=== PATIENT | male | born 1985 | race Two or more races ===

== ENCOUNTER 2018-06-08 00:59 | Emergency (ER) | payer OTHER ==
[~2018-06-08] VITALS: Ht 167.6 cm; Wt 63.5 kg
[2018-06-08 01:10] VITALS: BP 130/92
--- NOTE | 2018-06-08 01:21 | Emergency Room Report ---
History of Present Illness General Chief Complaint: Laceration Source: Patient Present Illness HPI Patient presents with complaints of injury to the left hand Patient was using a pizza dough machine When he injured his index and middle finger on the left hand on the palmar aspect proximally Patient is left-hand dominant denies any wrist pain denies any elbow pain or other trauma patient is able to straighten all digits with discomfort Allergies: Coded Allergies: No Known Allergies (Unverified , 06/08/18) Patient History Past Medical History: see triage record Pertinent Family History: none Reviewed Nursing Documentation: PMH: Agreed; PSxH: Agreed Nursing Documentation-PMH Past Medical History: No Stated History Review of Systems All Other Systems: negative except mentioned in HPI Physical Exam Vital Signs Date Time Temp Pulse Resp B/P (MAP) Pulse Ox O2 Delivery O2 Flow Rate FiO2 06/08/18 01:04 98.2 80 12 134/91 97 Room Air Sp02 EP Interpretation: reviewed, normal General Appearance: well appearing, no apparent distress Head: normocephalic, atraumatic Eyes: bilateral eye PERRL, bilateral eye EOMI ENT: hearing grossly normal, normal pharynx Neck: supple Respiratory: lungs clear, no retraction, no accessory muscle use Cardiovascular #1: regular rate, rhythm Musculoskeletal: normal inspection - Patient able to flex and extend all digits appropriately Neurologic: alert, oriented x3, responsive Procedures Laceration/Wound Repair Laceration/Wound Repair : Consent: Emergent Wound Location: upper extremity Wound's Depth, Shape: into muscle, irregular Wound Explored: clean Irrigated w/ Saline (ccs): 300 Betadine Prep?: Yes Anesthesia: 1% Lidocaine Volume Anesthetic (ccs): 6 Wound Debrided: moderate Wound Repaired With: sutures Suture Size/Type: 5:0 Number of Sutures: 15 Layer Closure?: No Sterile Dressing Applied?: Yes Patient Tolerated: Well Complications: None Progress Patient had digital block performed on the hand index and middle finger by injecting the lidocaine proximally on the digit. We had good sedation with this patient had 7 stitches applied to the middle finger, 8 stitches applied to the index finger. The laceration on the index finger was a V-shaped appearance and the top layer lacerated was fairly thin however nevertheless we attempted to suture this down Medical Decision Making Diagnostic Impression: Primary Impression: Laceration ER Course Given the patient's laceration and presentation area was sedated with local digital block patient had sutures applied Lacerations are very jagged in nature and the suturing was fairly extensive Patient provided with tetanus antibiotics And requires close follow-up with workers comp physician there are no signs of tendon involvement patient has full mobility of flexion and extension of digits intact Last Vital Signs Date Time Temp Pulse Resp B/P (MAP) Pulse Ox O2 Delivery O2 Flow Rate FiO2 06/08/18 01:04 98.2 80 12 134/91 97 Room Air Status: improved Disposition: HOME, SELF-CARE Condition: Improved Scripts Amoxicillin/Potassium Clav 875-125* (AUGMENTIN 875-125 TABLET*) 1 Each Tablet 1 TAB ORAL TWICE A DAY, #14 TAB Prov: Evette Bolton DO 06/08/18 Ibuprofen* (MOTRIN*) 600 Mg Tablet 600 MG ORAL Q8H PRN for For Pain, #20 TAB 0 Refills Prov: Evette Bolton DO 06/08/18 Additional Instructions: Patient is provided with the discharge instructions notified to follow up with primary doctor in the next 2-3 days otherwise return to the er with any worsening symptoms. Please note that this report is being documented using [employer] technology. This can lead to erroneous entry secondary to incorrect interpretation by the dictating instrument. Evette Bolton DO Jun 08, 2018 01:21
[2018-06-08] MEDS ORDERED: IBUPROFEN600 MG ORAL (02:06)
[2018-06-08] MEDS ORDERED: AUGMENTIN 875-1 EAC1 ORAL (02:06)
[2018-06-08] MEDS ORDERED: Tetanus/Diptheria/Pertussis IM ONE (02:15)
[2018-06-08] MEDS ORDERED: Bacitracin Oint UD TOPIC ONE (02:15)
[2018-06-08] MEDS ORDERED: Augmentin 875mg Tab ORAL ONE (02:15)
[2018-06-08 02:19] VITALS: BP 131/90
== END 2018-06-08 02:19 | disposition home or self-care (01) ==
LOC: EMR 01:28
DX: S61.211A Laceration without foreign body of left index finger without damage to nail, initial encounter (principal); S61.213A Laceration without foreign body of left middle finger without damage to nail, initial encounter; W26.9XXA Contact with unspecified sharp object(s), initial encounter; Y92.9 Unspecified place or not applicable; Z23 Encounter for immunization
CPT/HCPCS: 90471; 90715; 99283